=== PATIENT | female | born 1975 | race Caucasian/White ===

== ENCOUNTER 2017-11-28 10:46 | Emergency (ER) | payer OTHER ==
[~2017-11-28] VITALS: Ht 170.1 cm; Wt 61.2 kg
[~2017-11-28 10:46] MED LIST: AMOXICILLIN500 MG PO; DIFLUCAN150 MG PO; VICODIN ES 7501 TAB PO
[2017-11-28] MEDS ORDERED: PREDNISONE10 MG PO (11:29)
[2017-11-28] MEDS ORDERED: FLONASE ALLERG9.9 ML NAS (11:29)
[2017-11-28] MEDS ORDERED: ROBITUSSIN DM 105 ML PO (11:29)
[2017-11-28] MEDS ORDERED: CLARITIN10 MG PO (11:29)
== END 2017-11-28 12:49 | disposition home or self-care (01) ==
LOC: ED 10:46
DX: J20.9 Acute bronchitis, unspecified (principal); R03.0 Elevated blood-pressure reading, without diagnosis of hypertension; F17.200 Nicotine dependence, unspecified, uncomplicated; L29.9 Pruritus, unspecified

== ENCOUNTER 2020-04-20 13:47 | Emergency (ER) | payer OTHER ==
[~2020-04-20] VITALS: Ht 170.1 cm; Wt 61.2 kg
[~2020-04-20 13:47] MED LIST changes: +CLARITIN10 MG PO; +FLONASE ALLERG9.9 ML NAS; +PREDNISONE10 MG PO; +ROBITUSSIN DM 105 ML PO
[2020-04-20 15:02] LABS: BASO # 0.1 10*3/uL (0.0-0.1); BASO % 0.8 % (0.0-1.0); EOS # 0.4 10*3/uL (0.0-0.4); EOS % 4.7 % (1.0-4.0); HEMATOCRIT 42.5 % (37.0-47.0); LYMPH # 2.1 10*3/uL (1.3-4.4); LYMPH % 24.4 % (27.0-41.0); MEAN CELL VOLUME 98.4 fl (81.0-99.0); MEAN CORPUSCULAR HGB 32.4 pg (27.0-31.0); MEAN CORPUSCULAR HGB CONC 32.9 g/dl (33.0-37.0); MEAN PLATELET VOLUME 10.1 fl (9.6-12.3); MONO # 0.5 10*3/uL (0.1-1.0); NEUT # 5.4 10*3/uL (2.3-7.9); NEUT % 63.9 % (47.0-73.0); PLATELET COUNT AUTOMATED 431 10*3/uL (130-400); RED BLOOD COUNT 4.32 10*6/uL (4.10-5.10); WHITE BLOOD COUNT 8.4 10*3/uL (4.8-10.8)
[2020-04-20 15:07] LABS: BILIRUBIN NEGATIVE (NEGATIVE); BLOOD 1+ (NEGATIVE); CLARITY SL CLOUDY (CLEAR); COLOR YELLOW (YELLOW); GLUCOSE NEGATIVE (NEGATIVE); KETONE NEGATIVE (NEGATIVE); NITRITE NEGATIVE (NEGATIVE); PH 8.5 (5.0-9.0); UROBILINOGEN 0.2 E.U./dl (0.2-1.0)
[2020-04-20 15:15] LABS: BACTERIA 1+; CALCIUM OXALATE CRYSTALS TRACE; LEUKO ESTERASE TRACE (NEGATIVE); RBC 16-20 rbc/hpf (0-2)
[2020-04-20 15:17] LABS: ALBUMIN 3.9 gm/dl (3.1-4.5); ALKALINE PHOSPHATASE 100 U/L (45-117); BUN 11 mg/dl (7-24); CHLORIDE 108 mmol/L (98-107); CREATININE 0.83 mg/dL (0.55-1.02); LIPASE 98 U/L (73-393); POTASSIUM 4.2 mmol/L (3.5-5.1); SGOT/AST 40 IU/L (3-35); SGPT/ALT 36 U/L (12-78); SODIUM 141 mmol/L (136-145); TOTAL PROTEIN 7.9 gm/dL (6.4-8.2)
== END 2020-04-20 17:00 | disposition home or self-care (01) ==
LOC: ED 13:47
PROVIDERS: Physician Assistant
DX: K52.9 Noninfective gastroenteritis and colitis, unspecified (principal); R11.2 Nausea with vomiting, unspecified